=== PATIENT | male | born 1970 | race Two or more races ===

== ENCOUNTER 2017-07-26 13:24 | Emergency (ER) | payer SELFPAY ==
[~2017-07-26] VITALS: Ht 180.3 cm; Wt 99.8 kg
[~2017-07-26 13:24] MED LIST: NO REPORTED MEDS
[2017-07-26 13:32] VITALS: BP 129/91
== END 2017-07-26 13:57 | disposition home or self-care (01) ==
LOC: ER 13:28
DX: S61.210A Laceration without foreign body of right index finger without damage to nail, initial encounter (principal); Z88.0 Allergy status to penicillin; W26.0XXA Contact with knife, initial encounter; Y93.89 Activity, other specified; Y92.89 Other specified places as the place of occurrence of the external cause; Y99.9 Unspecified external cause status
CPT/HCPCS: 12001; 99283; A4606; Z7610